=== PATIENT | male | born 1985 | race Caucasian/White ===

== ENCOUNTER 2016-12-21 17:52 | Inpatient (IN) | payer MEDICAID, OTHER ==
[2016-12-21 18:32] LABS: BASO # 0.1 K/uL (0.0-0.2); BASO % 0.9 % (0.0-2.0); EOS # 0.1 K/uL (0.0-0.7); EOS % 0.8 % (0.0-4.0); HEMATOCRIT 39.1 % (35.0-51.0); LYMPH # 2.4 K/uL (1.0-4.3); LYMPH % 20.4 % (20.0-40.0); MEAN CORPUSCULAR HEMOGLOBIN 27.8 pg (27.0-31.0); MEAN CORPUSCULAR HGB CONC 33.7 g/dL (33.0-37.0); MEAN PLATELET VOLUME 7.9 fL (7.2-11.7); MONO # 0.9 K/uL (0.0-0.8); MONO % 7.6 % (0.0-10.0); RBC URINE 96 /hpf (0-3); RED CELL DISTRIBUTION WIDTH 14.1 % (11.5-14.5); URINE BACTERIA OCC (<OCC); URINE BILIRUBIN NEGATIVE (NEGATIVE); URINE BLOOD 2+ (NEGATIVE); URINE COLOR Yellow (YELLOW); URINE GLUCOSE (UA) NORMAL (Normal); URINE KETONE TRACE mg/dL (NEGATIVE); URINE LEUKOCYTE ESTERASE NEG Leu/uL (Negative); URINE PROTEIN NEGATIVE (NEGATIVE); WBC URINE 2 /hpf (0-5)
[2016-12-21 18:34] LABS: MEAN CELL VOLUME 82.6 fL (80.0-94.0)
[2016-12-21 18:51] LABS: CHLORIDE 100 mmol/L (98-107); SODIUM 138 mmol/L (132-148)
[2016-12-21 18:53] LABS: BILIRUBIN,TOTAL 0.7 mg/dL (0.2-1.3); GFR AFRICAN-AMERICAN > 60
[2016-12-21 18:54] LABS: ALB/GLOB RATIO 1.3 (1.0-2.1); ALKALINE PHOSPHATASE 72 U/L (38-126); ALT/SGPT 83 U/L (21-72); AST/SGOT 65 U/L (17-59); BLOOD UREA NITROGEN 21 mg/dL (9-20); CALCIUM 9.2 mg/dl (8.6-10.4); CARBON DIOXIDE 26 mmol/L (22-30); GLUCOSE,RANDOM 99 mg/dL (75-110); TOTAL PROTEIN 7.8 g/dL (6.3-8.3)
[2016-12-21 18:55] LABS: ALCOHOL SERUM < 10 mg/dl (0-10)
--- NOTE | 2016-12-21 19:28 | C.PDOC ---
History Of Present Illness 31 y/o male presents to ED requesting heroin detox. Patient was pre-screened prior to arrival. Notes he typically uses 15-20 bags of heroin intravenously per day. Patient notes last use was a few hours prior to arrival. Denies alcohol use or any medical problems. Time Seen by Provider: 12/21/16 18:05 Chief Complaint (Nursing): Substance Abuse History Per: Patient History/Exam Limitations: no limitations Onset/Duration Of Symptoms: Persistent Current Symptoms Are (Timing): Still Present Modifying Factor(s): Narcotics Associated Symptoms: denies: Suicidal Thoughts, Suicidal Plan Recent travel outside of the [place]: No Past Medical History Reviewed: Historical Data, Nursing Documentation, Vital Signs Vital Signs: Last Vital Signs Temp 98.6 F 12/21/16 20:10 Pulse 76 12/21/16 20:10 Resp 18 12/21/16 20:10 BP 117/77 12/21/16 20:10 Pulse Ox 98 12/21/16 20:57 - Medical History PMH: No Chronic Diseases - [facility] Procedures DETOXIFICATION SERVICES FOR SUBSTANCE ABUSE TREATMENT (01/29/16) GROUP ASSET PROTECTION ASSISTANT FOR SUBSTANCE ABUSE TREATMENT, PSYCHOEDUCATION (01/29/16) Family History: States: Unknown Family Hx - Social History Hx Tobacco Use: Yes Hx Alcohol Use: No Hx Substance Use: Yes Review Of Systems Except As Marked, All Systems Reviewed And Found Negative. Constitutional: Negative for: Fever Cardiovascular: Negative for: Chest Pain Respiratory: Negative for: Shortness of Breath Gastrointestinal: Negative for: Vomiting Psych: Negative for: Withdrawal Physical Exam - Physical Exam Appears: Non-toxic, No Acute Distress Skin: Normal Color, Warm, Dry Head: Atraumatic, Normacephalic Chest: Symmetrical Cardiovascular: Rhythm Regular Respiratory: Normal Breath Sounds, No Rales, No Rhonchi, No Wheezing Gastrointestinal/Abdominal: Soft, No Tenderness Back: Normal Inspection Extremity: Normal ROM, Capillary Refill (< 2 sec. ) Neurological/Psych: Oriented x3, Normal Speech, Normal Cognition ED Course And Treatment - Laboratory Results Result Diagrams: 12/21/16 18:23 12/21/16 18:23 O2 Sat by Pulse Oximetry: 98 (RA) Pulse Ox Interpretation: Normal Progress Note: Labs ordered and reviewed. Patient seen by crisis rn field case manager at bedside. Accepted for admission by Dr. Patel. Disposition - Disposition Disposition: HOSPITALIZED Disposition Time: 19:27 Condition: FAIR - Clinical Impression Clinical Impression: Opiate use - Scribe Statement The provider has reviewed the documentation as recorded by the Willie Junior Provider Willie Attestation: All medical record entries made by the Scribe were at my direction and personally dictated by me. I have reviewed the chart and agree that the record accurately reflects my personal performance of the history, physical exam, medical decision making, and the department course for this patient. I have also personally directed, reviewed, and agree with the discharge instructions and disposition. Decision To Admit - Pt Status Changed To: Hospital Disposition Of: Inpatient - Admit Certification Admit to Inpatient:: After my assessment, the patient will require hospitalization for at least two midnights. This is because of the severity of symptoms shown, intensity of services needed, and/or the medical risk in this patient being treated as an outpatient. - InPatient: Physician Admission Certification: I certify that this patient requires 2 or more midnights of care for the following reason:: Protocol - . Bed Request Type: Detox Admitting Physician: Yordy Patel Patient Diagnosis: Opiate use
[2016-12-21] MEDS ORDERED: Aluminum Hydroxide/Magnesium Hydroxide Susp (30 mL) PO PRN (20:45)
--- NOTE | 2016-12-22 11:14 | PCM.PSYCH ---
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 Pt. was previously in the unit last year - Pt. reports being clean for 3 months post-discharge and ultimately relapsing. Pt. admits to using 20 bags of heroin/day IV. Pt. denies sharing needles Pt. also admits to consuming 2-3 percocet/day, and 1-2 sticks of xanax/day. Pt. denies history of seizures, but does report that he experiences tremors and anxiety when he stops using xanax. Pt. denies alcohol use. Pt. admits to using cocaine IV 3x/week. Pt. reports last drug use was yesterday between 4:30 and 5: 00pm. Pt. denies any current withdrawal symptoms. This will be the Pt's second detox. Pt. denies ever participating in a rehab program, suboxone program, or a methadone program. Pt. states that he was concerned about adverse effects of methadone. Pt. denies any other PMHx or medical conditions. Pt. denies any other hx of psychiatric diagnoses. Pt. denies any family hx remarkable for psychiatric conditions or substance abuse. Pt. is currently living w/ his girlfriend. Pt. reports that she does not use drugs. Pt. states that his children (16 and 6) are currently living with their mother. Current Medications: Active Medications Generic Name Dose Route Start Last Admin Trade Name Freq PRN Reason Stop Dose Admin Al Hydrox/Mg Hydrox/Simethicone 30 ml 12/21/16 20:45 Maalox 30 Ml PO TID PRN Indigestion / Heartburn Clonidine HCl 0.1 mg 12/21/16 20:45 Catapres PO Q8 PRN COWS Score More or Equal to 5 Gabapentin 300 mg 12/22/16 10:00 12/22/16 09:49 Neurontin PO 300 mg TID TOI Administration Hydroxyzine HCl 50 mg 12/21/16 20:46 12/21/16 21:09 Atarax PO 50 mg Q6H PRN Administration Anxiety Ibuprofen 600 mg 12/21/16 20:46 Motrin Tab PO Q6H PRN Pain, moderate (4-7) Loperamide HCl 2 mg 12/21/16 20:45 Imodium PO Q8 PRN Diarrhea Nicotine 1 patch 12/22/16 10:00 12/22/16 09:49 Nicoderm Cq TD 1 patch DAILY TOI Administration Ondansetron HCl 4 mg 12/21/16 20:45 Zofran Tab PO Q8 PRN Nausea/Vomiting Trazodone HCl 100 mg 12/21/16 22:00 12/21/16 21:09 Desyrel PO 100 mg HS PRN Administration Insomnia Past Psychiatric History - Past Psychiatric History Pertinent Medical Hx (Current Medical&Sleep Prob, Allergies): Allergies Allergy/AdvReac Type Severity Reaction Status Date / Time No Known Allergies Allergy Verified 12/21/16 18:11 No Known Home Med 12/21/16 Review of Systems - Psychiatric Psychiatric: As Per HPI. absent: Hallucinations, Homicidal Ideation, Suicidal Ideation Mental Status Examination - Affect Affect: Broad - Motor Activity Motor Activity: Calm - Reliability in Providing Information Reliability in Providing Information: Good - Speech Speech: Organized, Relevant - Mood Mood: Neutral - Formal Thought Process Formal Thought Process: No Impairment - Obsessions/Compulsions Obsessions: No Compulsions: No - Cognitive Functions Orientation: Person, Place, Situation, Time Sensorium: Alert Attention/Concentration: Attentive Estimate of Intelligence: Average Judgement: Intact, as evidence by: Insight regarding need for hospitalization Memory: Recent intact, as evidence by: Ability to recall events of the day, Remote intact, as evidenced by: Abilit to recall sig. 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 - Recommended/Plan of Treatment Treatment Recommendations and Plan of Treatment: Opioid Withdrawal -Subutex taper -Supportive therapy -PRN medications -Group and Individual therapy Sedative Anxiolytic Hypnotic Withdrawal -Librium taper -Supportive therapy -PRN medications -Group and Individual therapy Opioid Use Disorder -VT for abstinence -Supportive therapy -Group and Individual therapy Sedative Anxiolytic Hypnotic Use Disorder -VT for abstinence -Supportive therapy -Group and Individual Therapy 33 min Projected ELOS: 4 days Prognosis: good with treatment Discharge Plan and Discharge Criteria: No wdw sxs Refer to IOP or suboxone - Smoking Cessation Smoking Cessation Initiated: Yes
[2016-12-22] MEDS ORDERED: Buprenorphine Hydrochloride 2 mg SL ONE ×2 (15:00→16:00)
[2016-12-23] MEDS: Buprenorphine Hydrochloride 2 mg SL SCH (10:49)
--- NOTE | 2016-12-23 14:36 | PCM.PYCHPN ---
Psychiatric Progress Note - Psychiatric Progress Note Patient seen today, length of contact: 16 min Patient Chief Complaint: "I don't feel good" Problems Identified/Issues Discussed: Pt. seen, chart reviewed, and discussed w/ team. Pt. reports suffering from withdrawal symptoms, namely abdominal pain. Pt. was encouraged to see nurse about supportive care and PRN medications. Pt. was informed about his positive HCV status. Pt. was educated and counseled. Pt. was also encouraged to sign up for medicaid to ensure adequate treatment. After care was discussed. AK provided for abstinence. Medication Change: Yes (detox changes daily) Medical Record Reviewed: Yes Mental Status Examination - Cognitive Function Orientation: Person, Place, Situation, Time Attention: WNL Concentration: WNL Association: WNL Fund of Knowledge: WNL - Mood Mood: Depressed, Anxious - Affect Affect: Broad, Constricted - Speech Speech: Appropriate - Formal Thought Process Formal Thought Process: No Impairment - Suicidal Ideation Suicidal Ideation: No - Homicidal Ideation Homicidal Ideation: No Goal/Treatment Plan - Goal/Treatment Plan Need for Continued Stay: Discharge may exacerbated symptoms Progress Toward Problem(s) and Goals/Treatment Plan: Opioid Withdrawal -Subutex taper -Supportive therapy -PRN medications -Group and Individual therapy Sedative Anxiolytic Hypnotic Withdrawal -Librium taper -Supportive therapy -PRN medications -Group and Individual therapy Opioid Use Disorder -AK for abstinence -Supportive therapy -Group and Individual therapy Sedative Anxiolytic Hypnotic Use Disorder -AK for abstinence -Supportive therapy -Group and Individual Therapy HCV -counseled and educated -encouraged to apply for medicaid so that he can receive proper care upon discharge Estimated Date of D/C: 12/25/16
[2016-12-23 15:41] LABS: RBC URINE 1 /hpf (0-3); URINE BILIRUBIN NEGATIVE (NEGATIVE); URINE BLOOD NEGATIVE (NEGATIVE); URINE COLOR Yellow (YELLOW); URINE GLUCOSE (UA) NORMAL (Normal); URINE KETONE 2+ mg/dL (NEGATIVE); URINE LEUKOCYTE ESTERASE NEG Leu/uL (Negative); URINE PROTEIN NEGATIVE (NEGATIVE); WBC URINE < 1 /hpf (0-5)
[2016-12-23] MEDS ORDERED: Buprenorphine Hydrochloride 2 mg SL ONE (15:45)
[2016-12-24] MEDS: Buprenorphine Hydrochloride 2 mg SL SCH (10:07)
--- NOTE | 2016-12-24 15:37 | PCM.PYCHPN ---
Psychiatric Progress Note - Psychiatric Progress Note Patient seen today, length of contact: 20 min Patient Chief Complaint: "I feel okay" Problems Identified/Issues Discussed: The pt is seen, chart reviewed, case discussed. Pt is feeling well today. Pt slept well the night before. Pt denies suicidal thoughts and thoughts of hurting other people. Pt denies auditory or visual hallucinations. Pt complains of bodyaches, but otherwise says treatment is going fine. Pt plans to go back to work after discharge, but has not verbalized where he wants to go. Pt will be referred to outpatient program. Aftercare discussed, support and psychoeducation given. Medical Problems: Hepatitis C Medication Change: Yes (Subutex taper) Medical Record Reviewed: Yes Mental Status Examination - Cognitive Function Orientation: Person, Place, Situation, Time Memory: Intact Attention: WNL Concentration: WNL Association: WNL Fund of Knowledge: WNL - Mood Mood: Depressed, Anxious - Affect Affect: Constricted - Speech Speech: Appropriate - Formal Thought Process Formal Thought Process: No Impairment - Suicidal Ideation Suicidal Ideation: No - Homicidal Ideation Homicidal Ideation: No Goal/Treatment Plan - Goal/Treatment Plan Need for Continued Stay: Discharge may exacerbated symptoms Progress Toward Problem(s) and Goals/Treatment Plan: Opioid Withdrawal -Subutex taper -Supportive therapy -PRN medications -Group and Individual therapy Opioid Use Disorder -AZ for abstinence -Supportive therapy -Group and Individual therapy Sedative Anxiolytic Hypnotic Use Disorder -AZ for abstinence -Supportive therapy -Group and Individual Therapy HCV -counseled and educated -encouraged to apply for medicaid so that he can receive proper care upon discharge Estimated Date of D/C: 12/25/16 - Smoking Cessation Smoking Cessation Initiated: Yes
[2016-12-25] MEDS: Buprenorphine Hydrochloride 2 mg SL SCH (10:30)
[2016-12-25 10:44] VITALS: BP 103/65; PULSE 100; RESP 16; TEMP 98.2; O2SAT 99
--- NOTE | 2016-12-25 12:19 | PCM.PYCHDC ---
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 Pt. was previously in the unit last year - Pt. reports being clean for 3 months post-discharge and ultimately relapsing. Pt. admits to using 20 bags of heroin/day IV. Pt. denies sharing needles Pt. also admits to consuming 2-3 percocet/day, and 1-2 sticks of xanax/day. Pt. denies history of seizures, but does report that he experiences tremors and anxiety when he stops using xanax. Pt. denies alcohol use. Pt. admits to using cocaine IV 3x/week. Pt. reports last drug use was yesterday between 4:30 and 5: 00pm. Pt. denies any current withdrawal symptoms. This will be the Pt's second detox. Pt. denies ever participating in a rehab program, suboxone program, or a methadone program. Pt. states that he was concerned about adverse effects of methadone. Pt. denies any other PMHx or medical conditions. Pt. denies any other hx of psychiatric diagnoses. Pt. denies any family hx remarkable for psychiatric conditions or substance abuse. Consultations:: List each consultation separately and include: 1. Reason for request. 2. Findings. 3. Follow-up Summary of Hospital Course include:: 1. Description of specific treatment plan utilized for patients during their course of treatmen. 2. Summarize the time- course for resolution of acute symptoms and/or regressed behaviors. 3. Describe issues identified and worked on during hospitalization. 4. Describe medication utilized. 5. Describe medical problems identified and treated. 6. Reassessment of suicide risk Summary of Hospital Course: During the course of his stay, patient (pt) started progressively improving and he no longer remained anxious and irritable. He tolerated the withdrawal protocol very well. He didnt have any shakes, sweating or any other withdrawal symptoms. He started attending groups and meetings and started socializing. Denied any feelings of hopelessness, helplessness, and worthlessness, denied any problem with the sleep or appetite, denied suicidal ideation or homicidal ideation. Pt denied any auditory or visual hallucinations. Patient remained calm and cooperative and remained compliant with the medications. Patient tolerated the detox medications very well and denied any side effects. - Final Diagnosis (DSM 5) Condition upon Discharge: FAIR DSM 5: Opioid Withdrawal Sedative Anxiolytic Hypnotic Withdrawal Opioid Use Disorder Sedative Anxiolytic Hypnotic Use Disorder Disposition: HOME/ ROUTINE Follow-up Treatment Plan: Education: Pt was educated and counseled about the risks and benefits of taking and not taking medications. Pt was educated and counseled about the risks of drinking and abusing drugs. Pt was educated and counseled to go to the ER or call 911 if pt develop suicidal ideation or homicidal ideation, worsening of symptoms or severe side effects of the meds. Prescriptions/Medication Reconciliation: traZODone [Desyrel] 100 mg PO HS PRN #30 tab PRN Reason: Insomnia Gabapentin [Neurontin] 300 mg PO TID #90 cap - Smoking Cessation Smoking Cessation Medication prescribed: No - Antipsychotic Medications Pt discharged on 2 or more routine antipsychotic medications: No
== END 2016-12-25 12:21 | disposition home or self-care (01) | DRG 745 ==
LOC: C.ER 17:52 → C.7D 19:48
PROVIDERS: ADMIT Psychiatry & Neurology Psychiatry; ATTEND Psychiatry & Neurology Psychiatry
PROC: HZ2ZZZZ Detoxification Services for Substance Abuse Treatment (ICD-10-PCS; principal; 2016-12-21)
PROC: HZ59ZZZ Individual Psychotherapy for Substance Abuse Treatment, Supportive (ICD-10-PCS; 2016-12-21)
PROC: HZ46ZZZ Group Counseling for Substance Abuse Treatment, Psychoeducation (ICD-10-PCS; 2016-12-21)
DX: F11.23 Opioid dependence with withdrawal (principal); F13.239 Sedative, hypnotic or anxiolytic dependence with withdrawal, unspecified; F17.210 Nicotine dependence, cigarettes, uncomplicated

== ENCOUNTER 2017-05-21 13:59 | Emergency (ER) | payer MEDICAID, OTHER ==
[2017-05-21 14:09] VITALS: TEMP 100.2
[2017-05-21] MEDS ORDERED: Albuterol-Ipratrop 3 mg / 0.5 (3 ml) UD INH STA (14:44)
--- NOTE | 2017-05-21 15:57 | RAD ---
HISTORY: cough, ? PNA COMPARISON: Comparison is made to 07/18/2014 TECHNIQUE: Chest PA and lateral FINDINGS: LUNGS: No evidence of new infiltrate or consolidation in the lungs. PLEURA: No significant pleural effusion identified. No pneumothorax apparent. CARDIOVASCULAR: Normal. OSSEOUS STRUCTURES: No significant abnormalities. VISUALIZED UPPER ABDOMEN: Normal. OTHER FINDINGS: None. IMPRESSION: No active disease.
[2017-05-21 16:39] VITALS: RESP 16; O2SAT 100
[2017-05-21 17:25] VITALS: BP 104/60; PULSE 88
--- NOTE | 2017-05-21 17:38 | C.PDOC ---
History Of Present Illness 32 year old male presents to the ED with complaints of shortness of breath beginning earlier today. Patient used heroin this morning and denies chest pain , weakness, numbness, fever, nausea, or vomiting. Time Seen by Provider: 05/21/17 14:38 Chief Complaint (Nursing): Shortness Of Breath History Per: Patient History/Exam Limitations: no limitations Onset/Duration Of Symptoms: Hrs Current Symptoms Are (Timing): Still Present Associated Symptoms: denies: Fever, Chills, Bloody Cough, Productive Cough Recent travel outside of the [place]: No Past Medical History Reviewed: Historical Data, Nursing Documentation, Vital Signs Vital Signs: Last Vital Signs Temp 100.2 F H 05/21/17 17:24 Pulse 88 05/21/17 17:24 Resp 16 05/21/17 17:24 BP 104/60 05/21/17 17:24 Pulse Ox 100 05/21/17 17:38 - Medical History PMH: Bronchitis - [facility] Procedures DETOXIFICATION SERVICES FOR SUBSTANCE ABUSE TREATMENT (12/21/16) GROUP GLASS BULB SILVERER FOR SUBSTANCE ABUSE TREATMENT, PSYCHOEDUCATION (12/21/16) INDIV PSYCHOTHERAPY FOR SUBSTANCE ABUSE TREATMENT, SUPPORT (12/21/16) Family History: States: Unknown Family Hx - Social History Hx Tobacco Use: Yes Hx Alcohol Use: No Hx Substance Use: Yes - Immunization History Hx Tetanus Toxoid Vaccination: No Hx Influenza Vaccination: No Hx Pneumococcal Vaccination: No Review Of Systems Constitutional: Negative for: Fever, Chills Cardiovascular: Negative for: Chest Pain, Palpitations Respiratory: Positive for: Shortness of Breath. Negative for: Cough Gastrointestinal: Negative for: Nausea, Vomiting, Abdominal Pain, Diarrhea Neurological: Negative for: Weakness Physical Exam - Physical Exam Appears: Non-toxic, Other (patient is lethargic) Skin: Warm, Dry Head: Atraumatic, Normacephalic Eye(s): bilateral: Other (pin point pupils ) Oral Mucosa: Moist Neck: Supple Chest: Symmetrical, No Deformity Cardiovascular: Rhythm Regular, No Murmur Respiratory: Rhonchi (scant rhonci ), Wheezing Gastrointestinal/Abdominal: Soft, No Tenderness, No Distention, No Guarding, No Rebound Extremity: Normal ROM, No Tenderness, Capillary Refill (good capillary refill, less than two seconds ), Other (Track blandon to right forearm, no abscesses. ) Neurological/Psych: Oriented x3 ED Course And Treatment O2 Sat by Pulse Oximetry: 100 (room air ) - Radiology CXR: Interpreted by Me CXR Interpretation: Yes: No Acute Disease Reevaluation Time: 17:37 Reassessment Condition: Improved Medical Decision Making Medical Decision Making: persistent heroine abuse, nasal congestion, clear lungs and normal CXR/VS's throughout with LOW susp of Asthma Disposition Doctor Will See Patient In The: Office Counseled Patient/Family Regarding: Studies Performed, Diagnosis - Disposition Referrals: [facility] [Outside] [facility] [Outside] [facility] [Outside] [facility] [Outside] Disposition: HOME/ ROUTINE Disposition Time: 17:38 Condition: GOOD Additional Instructions: avoid narcotics/heroine abuse Seek counseling/Detox through our outpatient services Keep Narcan handy in case of overdose Instruct friends and family to spray Narcan up your nose in case of overdose- keep it in your pocket Nasal congestion: Get Flonase (or equivalent) nasal spray Follow-up in our outpatient Clinic as needed. Prescriptions: Naloxone HCl [Narcan] 4 mg NS ONCE PRN #1 spray PRN Reason: narcotic Instructions: Narcotic Abuse (ED) Forms: [employer] (Sing[place]an) - Clinical Impression Clinical Impression: Drug dependence, Nasal congestion - Scribe Statement The provider has reviewed the documentation as recorded by the Scribe Jaki Hirsch All medical record entries made by the Scribe were at my direction and personally dictated by me. I have reviewed the chart and agree that the record accurately reflects my personal performance of the history, physical exam, medical decision making, and the department course for this patient. I have also personally directed, reviewed, and agree with the discharge instructions and disposition.
== END 2017-05-21 17:50 | disposition home or self-care (01) ==
LOC: C.ER 13:59
DX: R09.81 Nasal congestion (principal); F19.20 Other psychoactive substance dependence, uncomplicated